=== PATIENT | female | born 1955 | race Asian ===

== ENCOUNTER → 2016-07-27 | Outpatient (CLI) | payer BC, OTHER ==
[2016-07-27 08:20] LABS: BILIRUBIN,TOTAL 0.2 mg/dL (0.2-1.0); CREATININE 0.8 mg/dL (0.6-1.3); POTASSIUM 3.7 mmol/L (3.5-5.1); TOTAL PROTEIN, SERUM 7.8 g/dL (6.4-8.2)
[2016-07-28 11:06] LABS: *MICROALBUMIN, UR 12.5 ug/mL (Not Estab.); CREATININE, URINE 128.9 mg/dL (Not Estab.); MICROALBUMIN/CREAT RATIO, UR 9.7 mg/g creat (0.0-30.0)
== END | disposition home or self-care (01) ==
LOC: LAB 07:32
DX: E11.9 Type 2 diabetes mellitus without complications (principal); E78.1 Pure hyperglyceridemia; Z91.19 Patient's noncompliance with other medical treatment and regimen; Z72.3 Lack of physical exercise; Z79.899 Other long term (current) drug therapy
CPT/HCPCS: 36415; 82043; 82570; 83690

== ENCOUNTER 2016-12-20 07:36 | Outpatient (CLI) | payer BC, OTHER ==
[2016-12-20 09:00] LABS: BILIRUBIN,TOTAL 0.3 mg/dL (0.2-1.0); CREATININE 0.8 mg/dL (0.6-1.3); POTASSIUM 3.9 mmol/L (3.5-5.1); TOTAL PROTEIN, SERUM 7.9 g/dL (6.4-8.2)
[2016-12-20 09:08] LABS: *BILIRUBIN,URIN NEGATIVE (NEGATIVE); *BLOOD, URINE 2+ (NEGATIVE); *CLARITY,URINE CLEAR (CLEAR); *COLOR,URINE YELLOW (YELLOW); *KETONES,URINE NEGATIVE (NEGATIVE); *PROTEIN,URINE NEGATIVE (NEGATIVE); *UROBILINOGEN,URINE 0.2 E.U./dl (NORMAL); LEUKOCYTE ESTERASE ,URINE NEGATIVE (NEGATIVE); NITRITE, URINE NEGATIVE (NEGATIVE); PH,URINE 5.5 (5.0-8.0); UGLUCOSE NEGATIVE (NEGATIVE)
[2016-12-20 09:35] LABS: BACTERIA,URINE NONE SEEN /HPF (NONE SEEN); CALCIUM OXALATE CRYSTALS,UR FEW /HPF (NONE SEEN); MUCUS,URINE MODERATE /LPF (0-FEW); SQUAMOUS EPITHELIAL CELL,UR FEW /HPF (NONE SEEN); WBC,URINE 0-3 /HPF (0-3)
== END 2016-12-20 23:59 | disposition home or self-care (01) ==
LOC: LAB 07:36
DX: E11.9 Type 2 diabetes mellitus without complications (principal); E78.1 Pure hyperglyceridemia; Z72.3 Lack of physical exercise; Z79.899 Other long term (current) drug therapy
CPT/HCPCS: 82043; 82570

== ENCOUNTER 2017-05-22 08:11 | Outpatient (CLI) | payer BC, OTHER ==
[2017-05-22 08:55] LABS: *BILIRUBIN,URIN NEGATIVE (NEGATIVE); *BLOOD, URINE 2+ (NEGATIVE); *CLARITY,URINE CLEAR (CLEAR); *COLOR,URINE YELLOW (YELLOW); *KETONES,URINE NEGATIVE (NEGATIVE); *PROTEIN,URINE NEGATIVE (NEGATIVE); *UROBILINOGEN,URINE 0.2 E.U./dl (NORMAL); LEUKOCYTE ESTERASE ,URINE NEGATIVE (NEGATIVE); NITRITE, URINE NEGATIVE (NEGATIVE); PH,URINE 5.5 (5.0-8.0); UGLUCOSE NEGATIVE (NEGATIVE)
[2017-05-22 09:04] LABS: BILIRUBIN,TOTAL 0.3 mg/dL (0.2-1.0); CREATININE 0.8 mg/dL (0.6-1.3); POTASSIUM 3.9 mmol/L (3.5-5.1)
[2017-05-22 09:46] LABS: BACTERIA,URINE FEW /HPF (NONE SEEN); SQUAMOUS EPITHELIAL CELL,UR FEW /HPF (NONE SEEN); WBC,URINE 0-3 /HPF (0-3)
== END 2017-05-23 13:58 | disposition home or self-care (01) ==
LOC: LAB 08:11
PROVIDERS: ATTEND Internal Medicine
DX: E11.9 Type 2 diabetes mellitus without complications (principal); E78.1 Pure hyperglyceridemia; Z79.899 Other long term (current) drug therapy; Z72.3 Lack of physical exercise; Z91.19 Patient's noncompliance with other medical treatment and regimen
CPT/HCPCS: 36415; 82043; 82570; 86850; 86900; 86901

== ENCOUNTER 2017-09-23 11:13 | Emergency (ER) | payer BC, OTHER ==
[~2017-09-23] VITALS: Ht 154.9 cm; Wt 58.5 kg
[2017-09-23] MEDS ORDERED: MULT1TAB73 PO (11:39)
[2017-09-23] MEDS ORDERED: ASCO500C18 PO (11:39)
[2017-09-23] MEDS ORDERED: METO50TA16 PO (11:39)
[2017-09-23] MEDS ORDERED: OLME1TAB34 PO (11:39)
[2017-09-23] MEDS ORDERED: METF500T6 PO (11:39)
--- NOTE | 2017-09-23 13:38 | NUR ---
PT EVALUATED BY DR HANSON.
[2017-09-23] MEDS ORDERED: CEPHALEXIN MONOHYDRATE 500 MG CAPSULE PO ONE (13:45)
[2017-09-23] MEDS ORDERED: LIDOCAINE HCL 1% 20 ML VIAL IJ ONE (13:45)
[2017-09-23] MEDS ORDERED: SULFAMETH/TRIMETH 800/160 MG TABLET PO ONE (13:45)
[2017-09-23] MEDS ORDERED: CEPHALEXIN MONOHYDRATE 500 MG CAPSULE ONE (14:03)
[2017-09-23] MEDS ORDERED: SULFAMETH/TRIMETH 800/160 MG TABLET ONE (14:04)
[2017-09-23 14:11] VITALS: BP 126/74
--- NOTE | 2017-09-23 14:12 | NUR ---
Patient discharged to home in stable conditon. Written and verbal after care instructions given. Patient verbalizes understanding of instructions.
== END 2017-09-23 14:12 | disposition home or self-care (01) ==
LOC: ER 11:13
DX: L03.011 Cellulitis of right finger (principal); I10 Essential (primary) hypertension; E11.9 Type 2 diabetes mellitus without complications; Z90.49 Acquired absence of other specified parts of digestive tract; Z88.1 Allergy status to other antibiotic agents
CPT/HCPCS: 10060; 99283; A4663; J3490

== ENCOUNTER 2017-11-05 07:11 | Outpatient (CLI) | payer BC, OTHER ==
[~2017-11-05 07:11] MED LIST: ASCO500C18 PO; METF-440 PO; METO50TA16 PO; MULT1TAB73 PO; OLME1TAB34 PO
[2017-11-05 08:11] LABS: BILIRUBIN,TOTAL 0.3 mg/dL (0.2-1.0); CREATININE 0.9 mg/dL (0.6-1.3); POTASSIUM 3.9 mmol/L (3.5-5.1); TOTAL PROTEIN, SERUM 7.9 g/dL (6.4-8.2)
== END 2017-11-05 23:59 | disposition home or self-care (01) ==
LOC: LAB 07:11
DX: E11.9 Type 2 diabetes mellitus without complications (principal); I10 Essential (primary) hypertension; E87.1 Hypo-osmolality and hyponatremia; Z72.3 Lack of physical exercise; Z91.19 Patient's noncompliance with other medical treatment and regimen; Z79.899 Other long term (current) drug therapy
CPT/HCPCS: 82043; 82570

== ENCOUNTER 2018-04-22 08:27 | Outpatient (CLI) | payer BC, OTHER ==
[2018-04-22 09:27] LABS: BILIRUBIN,TOTAL 0.2 mg/dL (0.2-1.0); CREATININE 0.7 mg/dL (0.6-1.3); POTASSIUM 3.7 mmol/L (3.5-5.1); TOTAL PROTEIN, SERUM 7.5 g/dL (6.4-8.2)
== END 2018-04-22 23:59 | disposition home or self-care (01) ==
LOC: LAB 08:27
DX: E11.9 Type 2 diabetes mellitus without complications (principal); E78.1 Pure hyperglyceridemia; Z72.3 Lack of physical exercise; Z91.19 Patient's noncompliance with other medical treatment and regimen; Z79.899 Other long term (current) drug therapy
CPT/HCPCS: 36415; 82043; 82570

== ENCOUNTER 2018-09-02 07:56 | Outpatient (CLI) | payer BC, OTHER ==
[2018-09-02 09:12] LABS: BILIRUBIN,TOTAL 0.3 mg/dL (0.2-1.0); POTASSIUM 4.1 mmol/L (3.5-5.1); TOTAL PROTEIN, SERUM 7.1 g/dL (6.4-8.2)
== END 2018-09-02 23:59 | disposition home or self-care (01) ==
LOC: LAB 07:56
DX: E11.9 Type 2 diabetes mellitus without complications (principal); E78.1 Pure hyperglyceridemia; Z72.3 Lack of physical exercise; Z79.899 Other long term (current) drug therapy; Z91.19 Patient's noncompliance with other medical treatment and regimen
CPT/HCPCS: 82043; 82570

== ENCOUNTER 2019-01-19 07:00 | Outpatient (CLI) | payer BC, OTHER ==
[2019-01-19 11:20] LABS: BILIRUBIN,TOTAL 0.2 mg/dL (0.2-1.0); CREATININE 1.1 mg/dL (0.6-1.3); POTASSIUM 4.1 mmol/L (3.5-5.1); TOTAL PROTEIN, SERUM 7.8 g/dL (6.4-8.2)
[2019-01-27 09:59] LABS: *MICROALBUMIN, UR 14.8; CREATININE, URINE 166.3
[2019-01-27 10:01] LABS: MICROALBUMIN/CREAT RATIO, UR 8.9
== END 2019-01-19 23:59 | disposition home or self-care (01) ==
LOC: LAB 07:00
DX: E11.9 Type 2 diabetes mellitus without complications (principal); E78.1 Pure hyperglyceridemia; I10 Essential (primary) hypertension; Z72.3 Lack of physical exercise; Z91.19 Patient's noncompliance with other medical treatment and regimen; Z79.899 Other long term (current) drug therapy
CPT/HCPCS: 36415; 82043; 82570

== ENCOUNTER 2019-08-05 07:18 | Outpatient (CLI) | payer BC, OTHER ==
[~2019-08-05 07:18] MED LIST changes: +MULT-594 PO; -MULT1TAB73 PO
== END 2019-08-05 23:59 | disposition home or self-care (01) ==
LOC: LAB 07:18
DX: E11.9 Type 2 diabetes mellitus without complications (principal)
CPT/HCPCS: 36415

== ENCOUNTER 2019-12-01 07:09 | Outpatient (CLI) | payer BC, OTHER ==
[2019-12-01 08:41] LABS: *BILIRUBIN,URIN NEGATIVE (NEGATIVE); *BLOOD, URINE 1+ (NEGATIVE); *CLARITY,URINE SLIGHTLY CLOUDY (CLEAR); *COLOR,URINE YELLOW (YELLOW); *KETONES,URINE NEGATIVE (NEGATIVE); *UROBILINOGEN,URINE 0.2 E.U./dl (NORMAL); LEUKOCYTE ESTERASE ,URINE NEGATIVE (NEGATIVE); NITRITE, URINE NEGATIVE (NEGATIVE); UGLUCOSE NEGATIVE (NEGATIVE)
[2019-12-01 12:03] LABS: BILIRUBIN,TOTAL 0.2 mg/dL (0.2-1.0); CREATININE 1.3 mg/dL (0.6-1.3); POTASSIUM 3.9 mmol/L (3.5-5.1); TOTAL PROTEIN, SERUM 7.8 g/dL (6.4-8.2)
[2019-12-01 15:36] LABS: BACTERIA,URINE FEW /HPF (NONE SEEN); RBC,URINE 0-3 /HPF (0-3); SQUAMOUS EPITHELIAL CELL,UR FEW /HPF (NONE SEEN); URINE AMORPHOUS URATE FEW /HPF; WBC,URINE NONE SEEN /HPF (0-3)
== END 2019-12-01 23:29 | disposition home or self-care (01) ==
LOC: LAB 07:09
DX: E11.9 Type 2 diabetes mellitus without complications (principal); E78.1 Pure hyperglyceridemia; Z72.3 Lack of physical exercise; Z79.899 Other long term (current) drug therapy; Z91.19 Patient's noncompliance with other medical treatment and regimen
CPT/HCPCS: 36415; 82043; 82570

== ENCOUNTER 2020-04-15 06:42 | Outpatient (CLI) | payer BC, OTHER ==
[2020-04-15 10:56] LABS: BILIRUBIN,TOTAL 0.2 mg/dL (0.2-1.0)
== END 2020-04-15 23:59 | disposition home or self-care (01) ==
LOC: LAB 06:42
DX: E11.9 Type 2 diabetes mellitus without complications (principal); E78.1 Pure hyperglyceridemia; Z91.19 Patient's noncompliance with other medical treatment and regimen; Z72.3 Lack of physical exercise
CPT/HCPCS: 82043; 82570

== ENCOUNTER 2020-05-09 08:39 | Outpatient (CLI) | payer BC, OTHER ==
--- NOTE | 2020-05-10 09:49 | NUR ---
RADIOLOGIST REPORT OF THE PATIENT'S X-RAYS WERE FAXED TO HER
== END 2020-05-09 23:59 | disposition home or self-care (01) ==
LOC: XRAY 08:39
DX: M47.812 Spondylosis without myelopathy or radiculopathy, cervical region (principal)
CPT/HCPCS: 72050

== ENCOUNTER 2020-06-09 08:25 | Outpatient (CLI) | payer BC, OTHER | END 2020-06-09 23:59 | disposition home or self-care (01) | LOC: XRAY 08:25 | PROVIDERS: ATTEND Orthopaedic Surgery | DX: M43.12 Spondylolisthesis, cervical region (principal); M54.12 Radiculopathy, cervical region | CPT/HCPCS: 70030-TC ==

== ENCOUNTER 2020-12-02 08:08 | Outpatient (CLI) | payer BC, OTHER ==
[2020-12-02 08:38] LABS: HEMATOCRIT 29.4 % (31.2-41.9); MEAN CORPUSCULAR HEMOGLOBIN 30.1 uug (24.7-32.8); MEAN CORPUSCULAR VOLUME 89.8 fL (75.5-95.3); PLATELET COUNT (AUTO) 404 K/uL (179-408)
[2020-12-02 08:53] LABS: THYROID STIMULATING HORMONE 1.538 mIU/mL (0.358-3.740)
[2020-12-02 09:15] LABS: BILIRUBIN,TOTAL 0.3 mg/dL (0.2-1.0); CREATININE 1.1 mg/dL (0.6-1.3); POTASSIUM 3.9 mmol/L (3.5-5.1); TOTAL PROTEIN, SERUM 7.3 g/dL (6.4-8.2)
== END 2020-12-02 23:59 | disposition home or self-care (01) ==
LOC: LAB 08:08
PROVIDERS: ATTEND Family Medicine
DX: I10 Essential (primary) hypertension (principal); E11.9 Type 2 diabetes mellitus without complications; E78.5 Hyperlipidemia, unspecified
CPT/HCPCS: 36415; 84443; 85025

== ENCOUNTER 2021-02-21 07:37 | Outpatient (CLI) | payer BC, OTHER ==
[2021-02-21 09:11] LABS: HEMATOCRIT 31.1 % (31.2-41.9); MEAN CORPUSCULAR HEMOGLOBIN 30.3 uug (24.7-32.8); MEAN CORPUSCULAR VOLUME 89.6 fL (75.5-95.3); PLATELET COUNT (AUTO) 398 K/uL (179-408)
[2021-02-21 10:05] LABS: BILIRUBIN,TOTAL 0.2 mg/dL (0.2-1.0); CREATININE 1.1 mg/dL (0.6-1.3); POTASSIUM 3.7 mmol/L (3.5-5.1); TOTAL PROTEIN, SERUM 7.5 g/dL (6.4-8.2)
== END 2021-02-21 23:59 | disposition home or self-care (01) ==
LOC: LAB 07:37
PROVIDERS: ATTEND Family Medicine
DX: D64.9 Anemia, unspecified (principal); E11.9 Type 2 diabetes mellitus without complications; E78.5 Hyperlipidemia, unspecified
CPT/HCPCS: 36415; 82746; 83550; 85025

== ENCOUNTER 2021-06-26 07:20 | Outpatient (CLI) | payer BC, OTHER ==
[2021-06-26 08:21] LABS: HEMATOCRIT 31.1 % (31.2-41.9); MEAN CORPUSCULAR HEMOGLOBIN 30.2 uug (24.7-32.8); PLATELET COUNT (AUTO) 413 K/uL (179-408)
[2021-06-26 09:01] LABS: BILIRUBIN,TOTAL 0.3 mg/dL (0.2-1.0); CREATININE 1.1 mg/dL (0.6-1.3); POTASSIUM 3.7 mmol/L (3.5-5.1); TOTAL PROTEIN, SERUM 7.5 g/dL (6.4-8.2)
[2021-06-26 13:26] LABS: THYROID STIMULATING HORMONE 2.039 mIU/mL (0.358-3.740)
[2021-06-28 14:20] LABS: *MICROALBUMIN, UR 4.2; CREATININE, URINE 70.2
== END 2021-06-26 23:59 | disposition home or self-care (01) ==
LOC: LAB 07:20
PROVIDERS: ATTEND Legal Medicine
DX: E11.9 Type 2 diabetes mellitus without complications (principal); I10 Essential (primary) hypertension; E78.5 Hyperlipidemia, unspecified
CPT/HCPCS: 36415; 82043; 82570; 84443; 85025

== ENCOUNTER 2021-09-14 08:41 | Outpatient (CLI) | payer BC, OTHER ==
[2021-09-14 09:18] LABS: HEMATOCRIT 30.6 % (31.2-41.9); MEAN CORPUSCULAR HEMOGLOBIN 30.1 uug (24.7-32.8); MEAN CORPUSCULAR VOLUME 87.4 fL (75.5-95.3); PLATELET COUNT (AUTO) 423 K/uL (179-408)
[2021-09-14 09:25] LABS: BILIRUBIN,TOTAL 0.3 mg/dL (0.2-1.0); CREATININE 1.1 mg/dL (0.6-1.3); TOTAL PROTEIN, SERUM 7.4 g/dL (6.4-8.2)
[2021-09-14 09:38] LABS: *BILIRUBIN,URIN NEGATIVE (NEGATIVE); *BLOOD, URINE 2+ (NEGATIVE); *CLARITY,URINE CLEAR (CLEAR); *COLOR,URINE YELLOW (YELLOW); *KETONES,URINE NEGATIVE (NEGATIVE); *UROBILINOGEN,URINE 0.2 E.U./dl (NORMAL); LEUKOCYTE ESTERASE ,URINE NEGATIVE (NEGATIVE); NITRITE, URINE NEGATIVE (NEGATIVE); PH,URINE 5.5 (5.0-8.0); UGLUCOSE NEGATIVE (NEGATIVE)
[2021-09-14 11:30] LABS: BACTERIA,URINE NONE SEEN /HPF (NONE SEEN); SQUAMOUS EPITHELIAL CELL,UR FEW /HPF (NONE SEEN); WBC,URINE 0-3 /HPF (0-3)
== END 2021-09-14 23:59 | disposition home or self-care (01) ==
LOC: LAB 08:41
PROVIDERS: ATTEND Internal Medicine Gastroenterology
DX: Z01.818 Encounter for other preprocedural examination (principal); Z12.11 Encounter for screening for malignant neoplasm of colon
CPT/HCPCS: 36415; 71046; 85025; 85610; 85730; 93005

== ENCOUNTER 2021-09-15 09:02 | Outpatient (CLI) | payer BC, OTHER | END 2021-09-15 23:59 | disposition home or self-care (01) | LOC: LAB 09:02 | PROVIDERS: ATTEND Internal Medicine Gastroenterology | DX: Z01.812 Encounter for preprocedural laboratory examination (principal); Z20.822 Contact with and (suspected) exposure to COVID-19 ==

== ENCOUNTER 2021-09-18 07:50 | Day surgery (SDC) | payer BC, OTHER ==
[2021-09-18] MEDS ORDERED: EPHEDRINE SULFATE 50 MG/ML AMPUL ONE (13:20)
[2021-09-18] MEDS ORDERED: LIDOCAINE-MPF 2% 5 ML VIAL ONE (13:20)
[2021-09-18] MEDS ORDERED: PROPOFOL 200 MG/20 ML BOTTLE ONE (13:20)
== END 2021-09-18 11:25 | disposition home or self-care (01) ==
LOC: DS 07:50
PROVIDERS: ATTEND Internal Medicine Gastroenterology
DX: K59.00 Constipation, unspecified (principal); K64.8 Other hemorrhoids; K63.89 Other specified diseases of intestine; E11.9 Type 2 diabetes mellitus without complications; Z79.84 Long term (current) use of oral hypoglycemic drugs; Z79.899 Other long term (current) drug therapy; Z98.890 Other specified postprocedural states; Z88.1 Allergy status to other antibiotic agents; Z88.8 Allergy status to other drugs, medicaments and biological substances
CPT/HCPCS: 45380; J3490 ×2; J7040; A4663

== ENCOUNTER 2022-02-15 08:36 | Outpatient (CLI) | payer BC, OTHER ==
[2022-02-15 09:20] LABS: BILIRUBIN,TOTAL 0.3 mg/dL (0.2-1.0); CREATININE 1.1 mg/dL (0.6-1.3); POTASSIUM 4.2 mmol/L (3.5-5.1); TOTAL PROTEIN, SERUM 7.2 g/dL (6.4-8.2)
== END 2022-02-15 23:59 | disposition home or self-care (01) ==
LOC: LAB 08:36
PROVIDERS: ATTEND Family Medicine
DX: Z00.00 Encounter for general adult medical examination without abnormal findings (principal)
CPT/HCPCS: 36415

== ENCOUNTER 2024-02-20 07:29 | Outpatient (CLI) | payer BC, OTHER ==
[2024-02-20 08:00] LABS: BASOPHILS % (AUTO) 0.7 % (0.0-2.0); DIFFERENTIAL COMMENT 0; EOSINOPHILS # (AUTO) 0.3 K/uL (0.0-0.7); EOSINOPHILS % (AUTO) 4.6 % (0.0-7.0); HEMATOCRIT 29.2 % (31.2-41.9); HEMOGLOBIN 10.1 g/dL (10.9-14.3); LYMPHOCYTES # (AUTO) 2.5 K/uL (0.8-4.8); LYMPHOCYTES % (AUTO) 36.4 % (20.5-51.5); MEAN CORPUSCULAR HEMOGLOBIN 30.2 uug (24.7-32.8); MEAN CORPUSCULAR HGB CONC 35 g/dL (32.3-35.6); MEAN CORPUSCULAR VOLUME 87.5 fL (75.5-95.3); MONOCYTES # (AUTO) 0.5 K/uL (0.1-1.30); MONOCYTES % (AUTO) 7.9 % (0.0-11.0); NEUTROPHILS # (AUTO) 3.4 K/uL (1.8-8.9); NEUTROPHILS % (AUTO) 50.4 % (38.5-71.5); PLATELET COUNT (AUTO) 452 K/uL (179-408); RED BLOOD CELL COUNT(AUTO) 3.34 MIL/uL (3.63-4.92); RED CELL DISTRIBUTION WIDTH 15.3 % (12.3-17.7); WHITE BLOOD COUNT (AUTO) 6.8 K/uL (3.8-11.8)
[2024-02-20 08:51] LABS: THYROID STIMULATING HORMONE 3.106 mIU/mL (0.358-3.740)
[2024-02-20 10:27] LABS: ALBUMIN 3.6 g/dL (3.4-5.0); BILIRUBIN,TOTAL 0.5 mg/dL (0.2-1.0); CREATININE 1.2 mg/dL (0.6-1.3); POTASSIUM 4.1 mmol/L (3.5-5.1); TOTAL PROTEIN, SERUM 7.1 g/dL (6.4-8.2)
== END 2024-02-20 23:59 | disposition home or self-care (01) ==
LOC: LAB 07:29
PROVIDERS: ATTEND Internal Medicine
DX: I10 Essential (primary) hypertension (principal); E11.9 Type 2 diabetes mellitus without complications
CPT/HCPCS: 36415; 84443; 85025